=== PATIENT | female | born 1990 | race Two or more races ===

== ENCOUNTER 2025-02-27 08:45 | Outpatient (RCR) | payer MEDICAID, SELFPAY ==
[2025-02-26 08:26] LABS: HCG Qualitative,Urine Negative
--- NOTE | 2025-02-26 09:00 | XR_ITS ---
Examination: Nuclear medicine thyroid uptake and scan Date and time: February 18, 2025 0729 hours INDICATIONS: Palpable lump right side of the neck this month TECHNIQUE AND FINDINGS: Oral administration 293 uCi I-[id number] 6 hour 24 hour uptake values recorded as well as anterior oblique scans 6 hour uptake 8.2% normal range 6-24% 24 hour uptake 14.6% normal range 10-36% Anterior oblique scans demonstrate large cold nodule lower pole right thyroid IMPRESSION: Large cold nodule lower pole right thyroid, recommend correlation with thyroid sonography
== END 2025-03-04 23:59 | disposition home or self-care (01) ==
LOC: SNUC 08:45
PROVIDERS: Referring Provider Internal Medicine; Visit Provider Internal Medicine
DX: E04.1 Nontoxic single thyroid nodule (principal); Z32.00 Encounter for pregnancy test, result unknown
CPT/HCPCS: 78013; 81025; A9516

== ENCOUNTER → 2025-03-01 | Outpatient (CLI) | payer MEDICAID, SELFPAY ==
[2025-03-01 07:55] LABS: Basophils # (Auto) 0.0 Thou/mm3 (0.0-0.2); Basophils % (Auto) 1 % (0-2.5); Eosinophils # (Auto) 0.2 Thou/mm3 (0.0-0.5); Eosinophils % (Auto) 3 % (0-10); Hematocrit 35.6 % (36.0-46.0); Hemoglobin 10.9 g/dL (12.0-16.0); Immature Granulocytes Auto 0.01 Thou/mm3 (0.00-0.00); Lymphocytes # (Auto) 1.4 Thou/mm3 (1.0-4.8); Lymphocytes % (Auto) 26 % (10-50); Mean Corpuscular HGB Conc 30.6 g/dl (31.0-37.0); Mean Corpuscular Hemoglobin 23.5 pg (25.0-35.0); Mean Corpuscular Volume 77 fL (80-100); Monocytes # (Auto) 0.4 Thou/mm3 (0.0-0.8); Monocytes % (Auto) 8 % (0-12); Neutrophils # (Auto) 3.5 Thou/mm3 (1.8-7.7); Neutrophils % (Auto) 63 % (37-80); Nucleated Red Blood Cell # 0.00 Thou/mm3 (0.00-0.00); Nucleated Red Blood Cell % 0 /100 WBC (0); Platelet Count 345 Thou/mm3 (140-440); RDW Standard Deviation 50.7 fL (36.4-46.3); Red Blood Count 4.63 Miln/mm3 (4.00-5.20); White Blood Count 5.5 Thou/mm3 (3.6-11.0)
--- NOTE | 2025-03-01 08:00 | XR_ITS ---
Examination: Thyroid sonography complete TECHNIQUE: Grayscale sonographic images thyroid lobes Date and time: March 01, 2025 0918 hours INDICATIONS: Large cold nodule lower pole right thyroid on nuclear medicine thyroid scan February 26, 2025 FINDINGS: Right thyroid 5.7 cm Lower pole nodule 20 x 16 x 22 mm Left thyroid 4.8 cm No thyroid nodules IMPRESSION: Larger lower pole right thyroid nodule
[2025-03-01 08:04] LABS: HCG,Qualitative Serum Negative
--- NOTE | 2025-03-01 08:30 | XR_ITS ---
Examination: Ultrasound-guided fine needle percutaneous aspiration thyroid nodule, right thyroid nodule. Thyroid sonography, limited Exam date and time: March 01, 2025 0924 hours INDICATIONS: Large lower pole right thyroid nodule on thyroid sonogram today. Technique: A timeout was completed verifying correct patient, procedure, site, positioning and special equipment if applicable. The patient was placed in supine position for the thyroid fine needle percutaneous aspiration The patient's right neck was prepped and draped in sterile fashion. Maximum barrier sterile technique, hand hygiene, ultrasound sterile technique. 1% lidocaine was used to anesthetize the skin and subcutaneous tissues to the patient's right thyroid nodule. Multiple fine needle aspirations were performed and multiple thyroid specimens placed in preservative according to the [facility] protocol. Specimens appears satisfactory. The attending radiologist was present for the entire procedure. Estimated blood loss 3 cc. The patient tolerated the procedure well and there were no complications. Impression: Successful ultrasound-guided fine-needle percutaneous aspiration thyroid nodule, right thyroid nodule.
[2025-03-01 09:03] LABS: INR 0.9 (0.9-1.3); Partial Thromboplastin Time 24.1 Seconds (22.0-36.0); Prothrombin Time 10.4 Seconds (9.0-12.2)
== END | disposition home or self-care (01) ==
PROVIDERS: Radiology Diagnostic Radiology; PCP Internal Medicine; Referring Provider Internal Medicine; Visit Provider Internal Medicine
DX: E04.1 Nontoxic single thyroid nodule (principal)
CPT/HCPCS: 10005; 36415; 76536; 84703; 85025; 85610; 85730